=== PATIENT | male | born 1935 | race Caucasian/White ===

== ENCOUNTER → 2017-01-03 | Outpatient (CLI) | payer MEDICARE, OTHER ==
[2017-01-03 19:24] LABS: ALBUMIN/GLOBULIN RATIO 1.3 (1.0-2.2); BILIRUBIN,TOTAL 0.6 mg/dL (0.2-1.0); CALCIUM 9.3 mg/dL (8.5-10.3); CREATININE 0.8 mg/dL (0.6-1.2); POTASSIUM 4.7 mmol/L (3.5-5.0); TOTAL PROTEIN 7.2 g/dL (6.7-8.2)
== END ==
LOC: LAB.WCP 08:00
PROVIDERS: ATTEND Family Medicine
DX: B35.1 Tinea unguium (principal); Z79.899 Other long term (current) drug therapy
CPT/HCPCS: 36415; 80053

== ENCOUNTER 2017-09-06 08:53 | Outpatient (CLI) | payer MEDICARE ==
--- NOTE | 2017-09-06 09:40 | XRAY Report ---
EXAM: CHEST RADIOGRAPHY EXAM DATE: 09/06/2017 09:20 AM. CLINICAL HISTORY: 1206.09. COMPARISON: None. TECHNIQUE: 2 views. FINDINGS: Lungs/Pleura: No focal opacities evident. No pleural effusion. No pneumothorax. Normal volumes. Mediastinum: Heart and mediastinal contours are unremarkable. IMPRESSION: No evidence of acute thoracic process [facility] Referring Provider Line: [phone] SITE ID: [id number]
[2017-09-06] MEDS ORDERED: ALBUTEROL NEB 2.5 MG/3 ML INH ONE (10:00)
== END 2017-09-06 08:54 | disposition home or self-care (01) ==
LOC: DI 08:53
PROVIDERS: ATTEND Internal Medicine
DX: R06.09 Other forms of dyspnea (principal); Z87.891 Personal history of nicotine dependence
CPT/HCPCS: 71046; 94060

== ENCOUNTER 2018-12-13 01:23 | Emergency (ER) | payer MEDICARE ==
[2018-12-13] MEDS ORDERED: DEXAMETHASONE 10 MG/ML VIAL PO STA (02:01)
[2018-12-13] MEDS ORDERED: IPRATROPIUM/ALBUTEROL 3 ML NEB INH STA (02:01)
[2018-12-13] MEDS ORDERED: CHERRY SYRUP 10 ML UDC PO ONE (02:01)
--- NOTE | 2018-12-13 02:02 | ED Physician Documentation ---
PD HPI DYSPNEA - Stated complaint Stated Complaint: BACK PX - Chief complaint Chief Complaint: Back Pain - History obtained from History obtained from: Patient - History of Present Illness Timing - onset: How many days ago (5-6) Timing - onset during: Light activity, Exertion (Initially noted some tightness in his upper back and chest along with shortness of breath when walking around the block 5 or 6 days ago. He states it has been progressive and has noted some dyspnea which just walking around the house past day or so. He has had a slight cough. He denies wheeze per se. He has tightness in the chest feeling. He does have a diagnosis of COPD and has had some pulmonary function tests. He does not usually use any inhalers nor oxygen. He does not have any history of coronary disease nor congestive heart failure.) Timing - details: Gradual onset, Still present, Waxing and waning Inciting event(s): No: Out of meds, URI, Immobilization/travel Improved by: Rest, Sitting up Worsened by: Exertion, Laying flat. No: Coughing Associated symptoms: Cough (mild), Chest pain / discomfort (tightness without pain). No: Fever, Hemoptysis, Wheezing, Palpitations, Bilateral edema Similar symptoms before: Has not had sx before Recently seen: Not recently seen Review of Systems Constitutional: reports: Fatigue. denies: Fever, Chills, Myalgias, Weight Loss Nose: denies: Rhinorrhea / runny nose, Congestion Throat: denies: Sore throat Cardiac: reports: Chest pain / pressure. denies: Palpitations, Pedal edema, Calf pain Respiratory: reports: Dyspnea, Cough. denies: Wheezing GI: denies: Abdominal Pain, Nausea, Vomiting, Diarrhea, Bloody / black stool Musculoskeletal: denies: Extremity swelling Neurologic: denies: Generalized weakness, Focal weakness, Numbness, Near syncope , Headache PD PAST MEDICAL HISTORY - Past Medical History Past Medical History: Yes Cardiovascular: None Respiratory: COPD Endocrine/Autoimmune: None GI: Chronic constipation : None HEENT: None Psych: None Musculoskeletal: Chronic back pain Derm: None - Past Surgical History Past Surgical History: Yes General: Cholecystectomy Ortho: Spine surgery HEENT: Tonsil/Adenoidectomy - Present Medications Home Medications: Ambulatory Orders Medication Instructions Recorded Confirmed Polyethylene Glycol 3350 [Miralax] 12/09/12 04/09/15 Sennosides [Senna Lax] 8.6 mg PO DAILY PRN 12/09/12 04/09/15 Aspirin [Aspir 81] 81 mg ORAL DAILY 02/17/14 04/09/15 Neomycin/Polymyxin B Sulf/Hc 4 drops LEFTEAR Q6HR #10 ml 04/09/15 [Phwnnuxd-Iwntjvngu-Ue Ear Soln] Albuterol Sulf [Ventolin Hfa 1 - 2 puffs INH Q4HR PRN #1 inhaler 12/13/18 Inhaler] Isosorbide Mononitrate ER [Imdur] 30 mg PO DAILY #10 tablet 12/13/18 dexAMETHasone [Decadron] 4 mg PO DAILY #5 tablet 12/13/18 - Allergies Allergies/Adverse Reactions: Allergies Allergy/AdvReac Type Severity Reaction Status Date / Time No Known Drug Allergies Allergy Verified 12/13/18 01:32 - Social History Does the pt smoke?: No Smoking Status: Never smoker Does the pt drink ETOH?: No Does the pt have substance abuse?: No - Immunizations Immunizations are current?: Yes PD ED PE NORMAL - Vitals Vital signs reviewed: Yes - General General: Alert and oriented X 3, No acute distress, Well developed/nourished - HEENT HEENT: Moist mucous membranes, Pharynx benign - Neck Neck: Supple, no meningeal sign, No adenopathy, No JVD - Cardiac Cardiac: RRR, No murmur - Respiratory Respiratory: Clear bilaterally - Abdomen Abdomen: Soft, Non tender - Male Male : Deferred - Rectal Rectal: Deferred - Back Back: No CVA TTP - Derm Derm: Normal color - Extremities Extremities: No tenderness to palpate, Normal ROM s pain, No edema, No calf tenderness / cord - Neuro Neuro: Alert and oriented X 3, No motor deficit, Normal speech Results - Vitals Vitals: Vital Signs - 24 hr 12/13/18 12/13/18 12/13/18 01:26 01:43 02:19 Temperature 36.6 C Heart Rate 62 57 L 51 L Respiratory 16 16 11 L Rate Blood Pressure 178/88 H O2 Saturation 98 99 12/13/18 12/13/18 03:24 03:42 Temperature 36.7 C Heart Rate 61 63 Respiratory 12 12 Rate Blood Pressure 127/74 141/76 H O2 Saturation 92 97 Oxygen O2 Source Room air - EKG (time done) 02:03 Rate: Rate (enter#) (56) Rhythm: Sinus bradycardia Ayer: Normal Intervals: Normal [place] QRS: Poor R wave progression Ischemia: Normal ST segments. No: ST elevation c/w ischemia, ST depression - Labs Labs: Laboratory Tests 12/13/18 12/13/18 12/13/18 02:10 02:10 02:10 WBC 6.4 RBC 4.26 L Hgb 13.6 L Hct 40.9 L MCV 96.0 H MCH 31.9 H MCHC 33.3 RDW 11.9 L Plt Count 187 MPV 10.1 Neut # (Auto) 3.4 Lymph # (Auto) 2.0 [place] # (Auto) 0.7 Eos # (Auto) 0.3 Baso # (Auto) 0.1 Absolute Nucleated RBC 0.00 Nucleated RBC % 0.0 Sodium 139 Potassium 4.1 Chloride 102 Carbon Dioxide 27 Anion Gap 10.0 BUN 19 Creatinine 0.8 Estimated GFR (MDRD) 93 Glucose 114 H Calcium 9.0 Magnesium 2.0 Total Bilirubin 1.0 AST 18 ALT 24 Alkaline Phosphatase 47 Troponin I 0.04 B-Natriuretic Peptide Total Protein 7.1 Albumin 4.0 Globulin 3.1 Albumin/Globulin Ratio 1.3 Lipase 25 12/13/18 02:10 WBC RBC Hgb Hct MCV MCH MCHC RDW Plt Count MPV Neut # (Auto) Lymph # (Auto) [place] # (Auto) Eos # (Auto) Baso # (Auto) Absolute Nucleated RBC Nucleated RBC % Sodium Potassium Chloride Carbon Dioxide Anion Gap BUN Creatinine Estimated GFR (MDRD) Glucose Calcium Magnesium Total Bilirubin AST ALT Alkaline Phosphatase Troponin I B-Natriuretic Peptide 44 Total Protein Albumin Globulin Albumin/Globulin Ratio Lipase - Rads (name of study) chest xray Radiology: Prelim report reviewed, EMP read contemporaneously, See rad report PD MEDICAL DECISION MAKING - ED course Complexity details: re-evaluated patient (He had nebulizer treatment and then was up and around a little bit and x-ray and states he still felt a little short of breath but not quite as bad. He was then given a nitroglycerin here in the ER and got up went to the bathroom after that and still had similar discomfort but also less than it had been. He feels okay with just resting. I think this sounds more lung like it and we will treated with an inhaler and steroids. However could also be an anginal. He states he has an appointment with his primary care on Friday which is in 2 days. He is stable otherwise so I think that can be a reasonable follow-up. He is to return if he has any rest symptoms. He can use Imdur daily for the next few days as well.), considered differential (Having chest tightness and dyspnea on exertion as well as some slight orthopnea. History of COPD with some mild cough recently but no real upper respiratory symptoms per se. He does not have any history of heart disease and has not had any leg edema. However we will check blood tests and EKG as well. We will get a chest x-ray to evaluate. We can try a nebulizer treatment.), d/w patient Departure - Departure Disposition: , Self Care Clinical Impression: Dyspnea Qualifiers: Dyspnea type: dyspnea on exertion Qualified Code(s): R06.09 - Other forms of dyspnea Condition: Stable Record reviewed to determine appropriate education?: Yes Health Concerns: dyspnea and chest discomfort Plan of Treatment: Inhaler and steroids; but also cover with nitrates pending follow up with PMD in 2 days and presume further testing (ECHO, stress test). Care Goals: activity without symptoms Assessment: Consider respiratory cause such as asthma or COPD and treat with inhaler and steroids. Also consider angina equivalent and can treat with a nitrate pending further testing. He looks stable and is without symptoms at rest so I do not discuss the Ja team admission but would want prompt outpatient work-up. Instructions: ED Dyspnea Shortness of Breath Follow-Up: Ramsey Jane MD [Primary Care Provider] - [facility] - [facility] [Provider Group] Prescriptions: Albuterol Sulf [Ventolin Hfa Inhaler] 1 - 2 puffs INH Q4HR PRN #1 inhaler PRN Reason: Shortness Of Air/Wheezing dexAMETHasone [Decadron] 4 mg PO DAILY #5 tablet Isosorbide Mononitrate ER [Imdur] 30 mg PO DAILY #10 tablet Comments: This sounds more likely to be lung related and so use the albuterol inhaler 2 puffs 4 times a day and also the Decadron steroid daily for the next 5 days. However there is still consideration of it being heart related and so we can also use a nitrate medicine daily which improves blood flow to the heart. Follow-up with your primary care Friday as planned. They will presumably get you close referral to cardiology or even in order themselves further heart testing such as an echocardiogram (ultrasound of the heart) and a stress test to further evaluate for heart cause. Return if worsening symptoms over the next couple of days in particular if you have symptoms while at rest and not just with exertion. Hold the isosorbide/nitrate medication if your blood pressure is less than 120 systolic.
[2018-12-13 02:16] LABS: BASOPHILS # (AUTO) 0.1 10^3/uL (0.0-0.1); BASOPHILS % (AUTO) 0.9 %; EOSINOPHILS # (AUTO) 0.3 10^3/uL (0.0-0.7); EOSINOPHILS % (AUTO) 4.5 %; HGB - HEMOGLOBIN 13.6 g/dL (14.0-18.0); LYMPHOCYTES % (AUTO) 30.8 %; MEAN CORPUSCULAR HEMOGLOBIN 31.9 pg (27.0-31.0); MEAN CORPUSCULAR HGB CONC 33.3 g/dL (32.0-36.0); MEAN PLATELET VOLUME 10.1 fL (7.4-11.4); MONOCYTES # (AUTO) 0.7 10^3/uL (0.0-1.0); MONOCYTES % (AUTO) 10.3 %; NEUTROPHILS # (AUTO) 3.4 10^3/uL (1.5-6.6); NEUTROPHILS % (AUTO) 53.3 %; PLT - PLATELET COUNT 187 10^3/uL (130-450); RED BLOOD COUNT 4.26 10^6/uL (4.70-6.10); RED CELL DISTRIBUTION WIDTH 11.9 % (12.0-15.0); WHITE BLOOD COUNT 6.4 x10^3/uL (4.8-10.8)
[2018-12-13 02:31] LABS: ALBUMIN/GLOBULIN RATIO 1.3 (1.0-2.2); CREATININE 0.8 mg/dL (0.6-1.2); TOTAL PROTEIN 7.1 g/dL (6.7-8.2)
--- NOTE | 2018-12-13 02:54 | XRAY Report ---
Reason: dyspnea on exertion Procedure Date: 12/13/2018 Accession Number: [id number] / [id number] Procedure: XR - Chest 2 View X-Ray CPT Code: 37525 FULL RESULT: EXAM: CHEST RADIOGRAPHY EXAM DATE: 12/13/2018 02:47 AM. CLINICAL HISTORY: Dyspnea on exertion. COMPARISON: CHEST 2 VIEW 09/06/2017 9:13 AM. TECHNIQUE: 2 views. FINDINGS: Lungs/Pleura: No focal opacities evident. No pleural effusion. No pneumothorax. Normal volumes. Mediastinum: The heart is not enlarged. There is tortuosity of the thoracic aorta. Other: None. IMPRESSION: 1. No infiltrates. 2. Tortuosity of the thoracic aorta. [facility]
[2018-12-13] MEDS ORDERED: ISOSORBIDE MONONITRATE ER 30 MG TABLET PO STA (03:38)
[2018-12-13] MEDS ORDERED: NITROGLYCERIN SL 0.4 MG TABLET SL STA (03:39)
[2018-12-13 04:01] VITALS: BP 126/74
== END 2018-12-13 04:13 | disposition home or self-care (01) ==
LOC: ED 01:23
DX: R07.89 Other chest pain (principal); J44.9 Chronic obstructive pulmonary disease, unspecified; R00.1 Bradycardia, unspecified; I44.4 Left anterior fascicular block; Q25.46 Tortuous aortic arch; Z79.82 Long term (current) use of aspirin
CPT/HCPCS: 36415; 71046; 80053; 83690; 83735; 83880; 84484; 85025; 93005; 94640; 94664; 99283; A9270

== ENCOUNTER 2018-12-14 09:16 | Emergency (ER) | payer MEDICARE ==
--- NOTE | 2018-12-14 10:36 | ED Physician Documentation ---
PD HPI CHEST PAIN - Stated complaint Stated Complaint: SOA - Chief complaint Chief Complaint: Back Pain - History obtained from History obtained from: Patient - History of Present Illness Timing - onset: How many weeks ago (1) Timing - onset during: Exertion Timing - duration: Hours Timing - details: Abrupt onset, Now resolved Pain level max: 8 Pain level now: 0 Quality: Pressure, Tightness, Sharp Location: Substernal Radiation: Back Improved by: Rest, Nitro Worsened by: Exertion Associated symptoms: Shortness of air. No: Diaphoresis, Nausea, Vomiting, Feeling faint / dizzy, General Weakness, Palpitations, Cough Similar symptoms before: No diagnosis Recently seen: Emergency Dept - Additional information Additional information: 83-year-old male with a history of chronic back pain and neck pain has developed some reproducible back pain that appears to be associated with exertion and include some shortness of breath. He was seen here in the emergency department in the foreclosure specialist 2 days ago and at that time he had a negative work-up and was placed on some albuterol and dexamethasone. The patient was also given a prescription for Imdur. He has taken the Imdur yesterday morning and he is taking it again this morning at about 5 AM. He states that yesterday evening about 8 PM he developed the pain in his back and it lasted until 5 AM this morning. He was well yesterday but feels that if he does any specific amount of exertion he will develop symptoms. He states that he has noted this over the past week. He knows that if he goes around the block he will have pain and will take hours for to resolve. He did not feel that the albuterol changed any of his symptoms. Review of Systems Constitutional: denies: Fever, Chills, Fatigue Eyes: denies: Decreased vision Ears: denies: Ear pain Nose: denies: Rhinorrhea / runny nose, Reviewed and negative Throat: denies: Sore throat Cardiac: reports: Chest pain / pressure. denies: Palpitations, Pedal edema, Calf pain Respiratory: reports: Dyspnea, Cough GI: denies: Abdominal Pain, Nausea, Vomiting : denies: Dysuria, Frequency Skin: denies: Rash Musculoskeletal: reports: Back pain. denies: Neck pain, Extremity pain Neurologic: denies: Generalized weakness, Focal weakness, Numbness PD PAST MEDICAL HISTORY - Past Medical History Past Medical History: Yes Cardiovascular: None Respiratory: COPD Endocrine/Autoimmune: None GI: Chronic constipation : None HEENT: None Psych: None Musculoskeletal: Chronic back pain Derm: None - Past Surgical History Past Surgical History: Yes General: Cholecystectomy Ortho: Spine surgery HEENT: Tonsil/Adenoidectomy - Present Medications Home Medications: Ambulatory Orders Medication Instructions Recorded Confirmed Polyethylene Glycol 3350 [Miralax] 12/09/12 04/09/15 Sennosides [Senna Lax] 8.6 mg PO DAILY PRN 12/09/12 04/09/15 Aspirin [Aspir 81] 81 mg ORAL DAILY 02/17/14 04/09/15 Neomycin/Polymyxin B Sulf/Hc 4 drops LEFTEAR Q6HR #10 ml 04/09/15 [Gmcxqqzb-Pewjauurg-Rz Ear Soln] Albuterol Sulf [Ventolin Hfa 1 - 2 puffs INH Q4HR PRN #1 inhaler 12/13/18 Inhaler] Isosorbide Mononitrate ER [Imdur] 30 mg PO DAILY #10 tablet 12/13/18 dexAMETHasone [Decadron] 4 mg PO DAILY #5 tablet 12/13/18 - Allergies Allergies/Adverse Reactions: Allergies Allergy/AdvReac Type Severity Reaction Status Date / Time No Known Drug Allergies Allergy Verified 12/14/18 09:22 - Social History Does the pt smoke?: No Smoking Status: Former smoker Does the pt drink ETOH?: No Does the pt have substance abuse?: No - Immunizations Immunizations are current?: Yes PD ED PE NORMAL - Vitals Vital signs reviewed: Yes (normal ) - General General: Alert and oriented X 3, No acute distress, Well developed/nourished, Other (appears well and is currently asymptomatic ) - HEENT HEENT: Atraumatic, PERRL, EOMI - Neck Neck: Supple, no meningeal sign, No bony TTP - Cardiac Cardiac: RRR, No murmur - Respiratory Respiratory: No respiratory distress, Clear bilaterally - Abdomen Abdomen: Soft, Non tender - Back Back: No CVA TTP, No spinal TTP - Derm Derm: Normal color, Warm and dry, No rash - Extremities Extremities: No deformity, No edema - Neuro Neuro: Alert and oriented X 3, 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, No motor deficit, No sensory deficit, Normal speech Eye Opening: Spontaneous Motor: Obeys Commands Verbal: Oriented GCS Score: 15 - Psych Psych: Normal mood, Normal affect Results - Vitals Vitals: Vital Signs - 24 hr 12/14/18 12/14/18 12/14/18 09:18 09:52 11:13 Temperature 37.7 C H 37 C 36.9 C Heart Rate 76 69 96 Respiratory 20 18 14 Rate Blood Pressure 111/67 110/70 102/60 O2 Saturation 96 96 94 12/14/18 12/14/18 13:21 14:21 Temperature 37.3 C 37.3 C Heart Rate 61 58 L Respiratory 20 22 Rate Blood Pressure 119/76 128/64 O2 Saturation 95 94 Oxygen O2 Source Room air - EKG (time done) 1036 Rate: Rate (enter#) (66) Rhythm: Atrial fibrillation Crane: LAD Ischemia: ST depression (lateral is subtle) Compare to prior EKG: Changed from prior EKG Computer interpretation: Agree with computer 1435 Rate: Rate (enter#) (53) Crane: LAD Compare to prior EKG: Changed from prior EKG (SPT earlier today the subtle ST depression in lateral leads and the afib have resolved. ) Computer interpretation: Agree with computer - Labs Labs: Laboratory Tests 12/14/18 12/14/18 12/14/18 10:55 10:55 10:55 WBC 11.1 H RBC 3.79 L Hgb 12.2 L Hct 36.4 L MCV 96.0 H MCH 32.2 H MCHC 33.5 RDW 12.1 Plt Count 200 MPV 11.4 Neut # (Auto) 8.2 H Lymph # (Auto) 1.8 [place] # (Auto) 0.9 Eos # (Auto) 0.1 Baso # (Auto) 0.0 Absolute Nucleated RBC 0.00 Nucleated RBC % 0.0 Sodium 139 Potassium 4.0 Chloride 102 Carbon Dioxide 26 Anion Gap 11.0 BUN 22 H Creatinine 0.8 Estimated GFR (MDRD) 93 Glucose 120 H Calcium 8.8 Total Bilirubin 0.8 AST 41 ALT 29 Alkaline Phosphatase 40 L Troponin I 9.17 H* Total Protein 6.7 Albumin 3.8 Globulin 2.9 Albumin/Globulin Ratio 1.3 Lipase 24 - Rads (name of study) chest Radiology: Prelim report reviewed (Impression: 1. Small left pleural effusion with adjacent atelectasis and airspace disease. 2. Poor inspiration.), EMP read indepedently, See rad report PD MEDICAL DECISION MAKING - ED course Complexity details: reviewed old records, reviewed results, re-evaluated patient, considered differential, d/w patient ED course: 83-year-old male with a history compelling for angina has had pain from 8 PM last night till 5 AM this morning and is now pain-free. He has an elevation of his troponin consistent with NSTEMI. Dr. Duckworth at [facility] is kind enough to accept this patient in transfer and recommends the heparin and plavix. Turns out that both [facility] and [facility] do not have beds this afternoon. Our friends at [facility] in [place] have a bed and I was able to consult the strap setter Dr. Choe and he recommends admission to the hospitalist service. Dr. Moreno graciously accepts the patient in transfer. Departure - Departure Disposition: 02 Transfer Acute Care Hosp Clinical Impression: NSTEMI (non-ST elevated myocardial infarction) Condition: Fair
[2018-12-14 11:09] LABS: BASOPHILS % (AUTO) 0.3 %; EOSINOPHILS # (AUTO) 0.1 10^3/uL (0.0-0.7); EOSINOPHILS % (AUTO) 0.6 %; HGB - HEMOGLOBIN 12.2 g/dL (14.0-18.0); LYMPHOCYTES # (AUTO) 1.8 10^3/uL (1.5-3.5); LYMPHOCYTES % (AUTO) 16.1 %; MEAN CORPUSCULAR HEMOGLOBIN 32.2 pg (27.0-31.0); MEAN CORPUSCULAR HGB CONC 33.5 g/dL (32.0-36.0); MEAN PLATELET VOLUME 11.4 fL (7.4-11.4); MONOCYTES # (AUTO) 0.9 10^3/uL (0.0-1.0); MONOCYTES % (AUTO) 8.5 %; NEUTROPHILS # (AUTO) 8.2 10^3/uL (1.5-6.6); NEUTROPHILS % (AUTO) 74.1 %; PLT - PLATELET COUNT 200 10^3/uL (130-450); RED BLOOD COUNT 3.79 10^6/uL (4.70-6.10); RED CELL DISTRIBUTION WIDTH 12.1 % (12.0-15.0); WHITE BLOOD COUNT 11.1 x10^3/uL (4.8-10.8)
[2018-12-14 11:23] LABS: ALBUMIN 3.8 g/dL (3.2-5.5); ALBUMIN/GLOBULIN RATIO 1.3 (1.0-2.2); BILIRUBIN,TOTAL 0.8 mg/dL (0.2-1.0); CALCIUM 8.8 mg/dL (8.5-10.3); CREATININE 0.8 mg/dL (0.6-1.2); TOTAL PROTEIN 6.7 g/dL (6.7-8.2)
--- NOTE | 2018-12-14 11:24 | XRAY Report ---
Reason: chest pain Procedure Date: 12/14/2018 Accession Number: [id number] / [id number] Procedure: XR - Chest 1 View X-Ray CPT Code: 97902 FULL RESULT: EXAM: CHEST RADIOGRAPHY EXAM DATE: 12/14/2018 11:13 AM. CLINICAL HISTORY: Chest pain. COMPARISON: CHEST 2 VIEW 12/13/2018 2:40 AM. TECHNIQUE: 1 view. FINDINGS: Lungs/Pleura: Left hemidiaphragm is obscured by adjacent opacity. Right lung is clear. Diminished lung volumes. Mediastinum: Atherosclerotic aortic calcifications. Tortuous thoracic aorta. Other: None. IMPRESSION: 1. Small left pleural effusion with adjacent atelectasis and airspace disease. 2. Poor inspiration. [facility]
[2018-12-14] MEDS ORDERED: HEPARIN 25000UNITS/500ML (D5W) 25,000 UNIT/500 ML BAG IV STA (11:35)
[2018-12-14] MEDS ORDERED: CLOPIDOGREL 300 MG TABLET PO STA (11:36)
[2018-12-14 14:22] VITALS: BP 128/64
== END 2018-12-14 15:46 | disposition short-term general hospital (02) ==
LOC: ED 09:16
DX: I21.4 Non-ST elevation (NSTEMI) myocardial infarction (principal); Z87.891 Personal history of nicotine dependence
CPT/HCPCS: 36415; 71045; 80053; 83690; 84484; 85025; 93005; 96365; 96366; 96376; 99284; A9270

== ENCOUNTER 2018-12-14 15:49 | Outpatient (CLI) | payer MEDICARE | END 2018-12-14 15:50 | disposition home or self-care (01) | LOC: EMS 15:49 | PROVIDERS: ATTEND Surgery | DX: I21.4 Non-ST elevation (NSTEMI) myocardial infarction (principal) | CPT/HCPCS: A0425; A0426 ==

== ENCOUNTER 2019-02-19 11:30 | Outpatient (CLI) | payer MEDICARE | END 2019-02-19 11:31 | disposition short-term general hospital (02) | LOC: EMS 11:30 | PROVIDERS: ATTEND Surgery | DX: R07.9 Chest pain, unspecified (principal) | CPT/HCPCS: A0425; A0427 ==

== ENCOUNTER 2019-03-17 08:15 | Outpatient (CLI) | payer MEDICARE ==
[2019-03-18 13:05] LABS: BASOPHILS # (AUTO) 0.1 10^3/uL (0.0-0.1); BASOPHILS % (AUTO) 1.1 %; EOSINOPHILS # (AUTO) 0.4 10^3/uL (0.0-0.7); EOSINOPHILS % (AUTO) 5.7 %; HGB - HEMOGLOBIN 13.3 g/dL (14.0-18.0); LYMPHOCYTES # (AUTO) 1.5 10^3/uL (1.5-3.5); LYMPHOCYTES % (AUTO) 23.2 %; MEAN CORPUSCULAR HEMOGLOBIN 32.2 pg (27.0-31.0); MEAN CORPUSCULAR HGB CONC 32.9 g/dL (32.0-36.0); MEAN CORPUSCULAR VOLUME 97.8 fL (80.0-94.0); MEAN PLATELET VOLUME 13.2 fL (7.4-11.4); MONOCYTES # (AUTO) 0.7 10^3/uL (0.0-1.0); MONOCYTES % (AUTO) 9.9 %; NEUTROPHILS % (AUTO) 59.9 %; PLT - PLATELET COUNT 200 10^3/uL (130-450); RED BLOOD COUNT 4.13 10^6/uL (4.70-6.10); RED CELL DISTRIBUTION WIDTH 12.1 % (12.0-15.0); WHITE BLOOD COUNT 6.6 x10^3/uL (4.8-10.8)
[2019-03-18 13:13] LABS: ALBUMIN 4.5 g/dL (3.2-5.5); ALBUMIN/GLOBULIN RATIO 1.6 (1.0-2.2); ALKALINE PHOSPHATASE 48 IU/L (42-121); ALT ALANINE AMINOTRANSFERASE 22 IU/L (10-60); AST ASPARTATE AMINOTRANSFERASE 22 IU/L (10-42); BUN - BLOOD UREA NITROGEN 20 mg/dL (6-20); CARBON DIOXIDE - CO2 28 mmol/L (21-32); CHLORIDE 102 mmol/L (101-111); CHOL/HDL RATIO 2.8 (<5.0); CHOLESTEROL 94 mg/dL; CREATININE 0.8 mg/dL (0.6-1.2); GFR - MDRD 93 (>89); GLUCOSE 106 mg/dL (70-100); HDL CHOLESTEROL 34 mg/dL; LDL CHOLESTEROL,CALCULATED 47 mg/dL; LDL/HDL RATIO 1.4 (<3.6); SODIUM 136 mmol/L (135-145); TOTAL PROTEIN 7.3 g/dL (6.7-8.2); VLDL CHOLESTEROL 13 mg/dL
== END 2019-03-17 23:59 | disposition home or self-care (01) ==
LOC: LAB.WCP 08:15
PROVIDERS: ATTEND Family Medicine
DX: I21.4 Non-ST elevation (NSTEMI) myocardial infarction (principal); I73.9 Peripheral vascular disease, unspecified; Z79.899 Other long term (current) drug therapy; Z87.891 Personal history of nicotine dependence
CPT/HCPCS: 36415; 80053; 80061; 83721; 84443; 85025

== ENCOUNTER 2019-04-26 13:28 | Outpatient (CLI) | payer MEDICARE ==
[~2019-04-26 13:28] MED LIST: ALBUTEROL NEB 2.5 MG/3 ML INH SCH
== END 2019-04-26 13:29 | disposition home or self-care (01) ==
LOC: RT 13:28
PROVIDERS: ATTEND Family Medicine
DX: J44.9 Chronic obstructive pulmonary disease, unspecified (principal)
CPT/HCPCS: 94060; 94729

== ENCOUNTER 2020-06-20 07:32 | Outpatient (CLI) | payer MEDICARE ==
[2020-06-20 12:58] LABS: BASOPHILS # (AUTO) 0.1 10^3/uL (0.0-0.1); BASOPHILS % (AUTO) 1.3 %; EOSINOPHILS # (AUTO) 0.3 10^3/uL (0.0-0.7); HGB - HEMOGLOBIN 13.9 g/dL (14.0-18.0); LYMPHOCYTES % (AUTO) 29.4 %; MEAN CORPUSCULAR HEMOGLOBIN 31.6 pg (27.0-31.0); MEAN CORPUSCULAR HGB CONC 32.7 g/dL (32.0-36.0); MEAN CORPUSCULAR VOLUME 96.6 fL (80.0-94.0); MONOCYTES # (AUTO) 0.8 10^3/uL (0.0-1.0); MONOCYTES % (AUTO) 11.1 %; NEUTROPHILS # (AUTO) 3.6 10^3/uL (1.5-6.6); NEUTROPHILS % (AUTO) 52.9 %; PLT - PLATELET COUNT 178 10^3/uL (130-450); RED CELL DISTRIBUTION WIDTH 12.1 % (12.0-15.0); WHITE BLOOD COUNT 6.7 x10^3/uL (4.8-10.8)
[2020-06-20 13:39] LABS: ALBUMIN 4.4 g/dL (3.2-5.5); ALBUMIN/GLOBULIN RATIO 1.4 (1.0-2.2); ALKALINE PHOSPHATASE 58 IU/L (42-121); ALT ALANINE AMINOTRANSFERASE 24 IU/L (10-60); AST ASPARTATE AMINOTRANSFERASE 21 IU/L (10-42); BILIRUBIN,TOTAL 0.8 mg/dL (0.2-1.0); BUN - BLOOD UREA NITROGEN 13 mg/dL (6-20); CALCIUM 9.4 mg/dL (8.5-10.3); CARBON DIOXIDE - CO2 28 mmol/L (21-32); CHLORIDE 105 mmol/L (101-111); CHOL/HDL RATIO 3.3 (<5.0); CHOLESTEROL 118 mg/dL; CREATININE 0.9 mg/dL (0.6-1.2); GLUCOSE 118 mg/dL (70-100); HDL CHOLESTEROL 36 mg/dL; LDL CHOLESTEROL,CALCULATED 66 mg/dL; LDL/HDL RATIO 1.8 (<3.6); SODIUM 138 mmol/L (135-145); TOTAL PROTEIN 7.5 g/dL (6.7-8.2); VLDL CHOLESTEROL 16 mg/dL
== END 2020-06-20 23:59 | disposition home or self-care (01) ==
LOC: LAB.WCP 07:32
PROVIDERS: ATTEND Nurse Practitioner Family
DX: I21.4 Non-ST elevation (NSTEMI) myocardial infarction (principal); Z79.899 Other long term (current) drug therapy
CPT/HCPCS: 36415; 80053; 80061; 83721; 84443; 85025

== ENCOUNTER 2021-04-24 14:50 | Outpatient (CLI) | payer MEDICARE ==
[2021-04-24 17:51] LABS: BASOPHILS # (AUTO) 0.1 10^3/uL (0.0-0.1); BASOPHILS % (AUTO) 0.8 %; BILIRUBIN,URINE NEGATIVE (NEGATIVE); CLARITY,URINE CLEAR (CLEAR); EOSINOPHILS # (AUTO) 0.2 10^3/uL (0.0-0.7); EOSINOPHILS % (AUTO) 3.8 %; GLUCOSE, URINE (UA) NEGATIVE (NEGATIVE); HCT - HEMATOCRIT 40.5 % (42.0-52.0); HGB - HEMOGLOBIN 13.3 g/dL (14.0-18.0); KETONES,URINE (UA) NEGATIVE (NEGATIVE); LEUKOCYTE ESTERASE, URINE NEGATIVE (NEGATIVE); LYMPHOCYTES # (AUTO) 1.6 10^3/uL (1.5-3.5); LYMPHOCYTES % (AUTO) 25.2 %; MEAN CORPUSCULAR HEMOGLOBIN 32.1 pg (27.0-31.0); MEAN CORPUSCULAR HGB CONC 32.8 g/dL (32.0-36.0); MEAN CORPUSCULAR VOLUME 97.8 fL (80.0-94.0); MEAN PLATELET VOLUME 13.8 fL (7.4-11.4); MONOCYTES # (AUTO) 0.4 10^3/uL (0.0-1.0); NITRITE,URINE NEGATIVE (NEGATIVE); OCCULT BLOOD,URINE NEGATIVE (NEGATIVE); PH,URINE 5.5 PH (5.0-7.5); PLT - PLATELET COUNT 195 10^3/uL (130-450); PROTEIN,URINE NEGATIVE (NEGATIVE); RED BLOOD COUNT 4.14 10^6/uL (4.70-6.10); UROBILINOGEN,URINE 0.2 (NORMAL) E.U./dL (NORMAL); WHITE BLOOD COUNT 6.3 x10^3/uL (4.8-10.8)
[2021-04-24 18:05] LABS: ALBUMIN 4.1 g/dL (3.2-5.5); ALBUMIN/GLOBULIN RATIO 1.3 (1.0-2.2); ALKALINE PHOSPHATASE 50 IU/L (42-121); ALT ALANINE AMINOTRANSFERASE 23 IU/L (10-60); AST ASPARTATE AMINOTRANSFERASE 19 IU/L (10-42); BILIRUBIN,TOTAL 0.6 mg/dL (0.2-1.0); BUN - BLOOD UREA NITROGEN 23 mg/dL (6-20); CARBON DIOXIDE - CO2 29 mmol/L (21-32); CHLORIDE 101 mmol/L (101-111); CHOL/HDL RATIO 5.4 (<5.0); CHOLESTEROL 221 mg/dL; CREATININE 0.8 mg/dL (0.6-1.2); GFR - MDRD 92 (>89); GLUCOSE 196 mg/dL (70-100); HDL CHOLESTEROL 41 mg/dL; LDL CHOLESTEROL,CALCULATED 141 mg/dL; LDL/HDL RATIO 3.4 (<3.6); POTASSIUM 4.3 mmol/L (3.5-5.0); SODIUM 137 mmol/L (135-145); TOTAL PROTEIN 7.2 g/dL (6.7-8.2); TRIGLYCERIDES 195 mg/dL; VLDL CHOLESTEROL 39 mg/dL
[2021-04-24 18:15] LABS: BACTERIA,URINE None Seen /HPF (None Seen); RBC,URINE 0-5 /HPF (0-5); SQUAMOUS EPITHELIAL CELL,UR NONE SEEN (<= Few); WBC,URINE 0-3 /HPF (0-3)
[2021-04-24 18:18] LABS: THYROID STIMULATING HORMONE 0.66 uIU/mL (0.34-5.60)
[2021-04-24 20:26] LABS: ESTIMATED AVERAGE GLUCOSE 131 mg/dL (70-100); HEMOGLOBIN A1c% 6.2 % (4.27-6.07)
== END 2021-04-24 23:59 | disposition home or self-care (01) ==
LOC: LAB.WCP 14:50
PROVIDERS: ATTEND Nurse Practitioner
DX: R53.83 Other fatigue (principal); I25.10 Atherosclerotic heart disease of native coronary artery without angina pectoris
CPT/HCPCS: 36415; 80053; 80061; 81001; 83036; 83721; 84443; 85025; 87086

== ENCOUNTER 2021-05-26 10:15 | Outpatient (CLI) | payer MEDICARE | END 2021-05-26 23:59 | disposition home or self-care (01) | LOC: LAB.N 10:15 | PROVIDERS: ATTEND Family Medicine | DX: U07.1 COVID-19 (principal) | CPT/HCPCS: 87070; 87275; 87276; U0004 ==

== ENCOUNTER 2021-05-29 07:55 | Emergency (ER) | payer MEDICARE ==
--- NOTE | 2021-05-29 10:52 | ED Physician Documentation ---
PD HPI DYSPNEA - Stated complaint Stated Complaint: C+, COUGH - Chief complaint Chief Complaint: Resp - History obtained from History obtained from: Patient - History of Present Illness Timing - onset: How many days ago (4) Timing - onset during: Rest Timing - duration: Days (4), Months Timing - details: Gradual onset, Still present Inciting event(s): URI Improved by: Rest Worsened by: Exertion Associated symptoms: Cough. No: Fever, Wheezing, Chest pain / discomfort Similar symptoms before: Has not had sx before Recently seen: Clinic - Additional information Additional information: 85-year-old male immunized with 2 doses has developed Covid. He has had symptoms for 4 days. He has had a positive test at our [facility] and he is here today for treatment. He states that he is not otherwise feeling particularly ill he has a slight cough has produced a little bit of phlegm. Review of Systems Constitutional: reports: Fever, Chills, Myalgias, Fatigue, Sweats Ears: denies: Ear pain Nose: reports: Rhinorrhea / runny nose, Congestion Respiratory: reports: Dyspnea, Cough GI: denies: Abdominal Pain, Nausea, Vomiting, Constipation, Diarrhea : denies: Dysuria Skin: denies: Rash Musculoskeletal: denies: Neck pain, Back pain, Extremity pain PD PAST MEDICAL HISTORY - Past Medical History Cardiovascular: None Respiratory: COPD Endocrine/Autoimmune: None GI: Chronic constipation : None HEENT: None Psych: None Musculoskeletal: Chronic back pain Derm: None - Past Surgical History Past Surgical History: Yes General: Cholecystectomy Ortho: Spine surgery HEENT: Tonsil/Adenoidectomy - Present Medications Home Medications: Ambulatory Orders Medication Instructions Recorded Confirmed Sennosides [Senna Lax] 8.6 mg PO DAILY PRN 12/09/12 04/09/15 polyethylene glycoL 3350 [Miralax] 12/09/12 04/09/15 Aspirin [Aspir 81] 81 mg ORAL DAILY 02/17/14 04/09/15 Neomycin/Polymyxin B Sulf/Hc 4 drops LEFTEAR Q6HR #10 ml 04/09/15 [Iicddetj-Xwiyavpxz-Ul Ear Soln] Albuterol Sulf [Ventolin Hfa 1 - 2 puffs INH Q4HR PRN #1 inhaler 12/13/18 Inhaler] Isosorbide Mononitrate ER [Imdur] 30 mg PO DAILY #10 tablet 12/13/18 dexAMETHasone [Decadron] 4 mg PO DAILY #5 tablet 12/13/18 dexAMETHasone [Decadron] 4 mg PO DAILY #5 tablet 05/29/21 - Allergies Allergies/Adverse Reactions: Allergies Allergy/AdvReac Type Severity Reaction Status Date / Time No Known Drug Allergies Allergy Verified 12/14/18 09:22 - Social History Does the pt smoke?: No Smoking Status: Never smoker Does the pt drink ETOH?: No Does the pt have substance abuse?: No - Immunizations Immunizations are current?: Yes PD ED PE NORMAL - Vitals Vital signs reviewed: Yes (Normal) - General General: Alert and oriented X 3, No acute distress, Well developed/nourished - HEENT HEENT: Atraumatic, PERRL, EOMI - Neck Neck: Supple, no meningeal sign, No bony TTP - Cardiac Cardiac: RRR, No murmur - Respiratory Respiratory: No respiratory distress, Clear bilaterally - Abdomen Abdomen: Soft, Non tender - Back Back: No CVA TTP, No spinal TTP - Derm Derm: Normal color, Warm and dry, No rash - Extremities Extremities: No deformity, No edema - Neuro Neuro: Alert and oriented X 3, 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, No motor deficit, No sensory deficit, Normal speech Eye Opening: Spontaneous Motor: Obeys Commands Verbal: Oriented GCS Score: 15 - Psych Psych: Normal mood, Normal affect Results - Vitals Vitals: Vital Signs - 24 hr 05/29/21 10:07 Temperature 36.9 C Heart Rate 58 L Respiratory 20 Rate Blood Pressure 123/77 O2 Saturation 94 Oxygen O2 Source Room air - Labs Labs: Laboratory Tests 05/29/21 05/29/21 11:06 11:06 WBC 4.8 RBC 4.33 L Hgb 13.7 L Hct 41.3 L MCV 95.4 H MCH 31.6 H MCHC 33.2 RDW 11.8 L Plt Count 162 MPV 10.3 Neut # (Auto) 2.8 Lymph # (Auto) 1.0 L [place] # (Auto) 0.8 Eos # (Auto) 0.2 Baso # (Auto) 0.0 Absolute Nucleated RBC 0.00 Nucleated RBC % 0.0 Sodium 137 Potassium 4.5 Chloride 98 L Carbon Dioxide 27 Anion Gap 12.0 BUN 16 Creatinine 0.7 Estimated GFR (MDRD) 108 Glucose 93 Calcium 9.1 Total Bilirubin 0.8 AST 25 ALT 21 Alkaline Phosphatase 43 Total Protein 7.2 Albumin 3.8 Globulin 3.4 Albumin/Globulin Ratio 1.1 Lipase 17 L PD MEDICAL DECISION MAKING - ED course Complexity details: considered differential, d/w patient ED course: 85-year-old male with Covid 4 days of symptoms who is immunized has a positive test in our system he is consenting to treatment with Regeneron. He has received counseling on the emergency use authorization of this medication. I have recommended its use. Departure - Departure Disposition: 01 Home, Self Care Clinical Impression: COVID-19 Condition: Stable Instructions: COVID-19 [facility], Flu and Cold: Nutrition, Prevention and Treatment Tips Follow-Up: Dodie Graves ARNP [Primary Care Provider] - Prescriptions: dexAMETHasone [Decadron] 4 mg PO DAILY #5 tablet
[2021-05-29 11:13] LABS: BASOPHILS % (AUTO) 0.4 %; EOSINOPHILS # (AUTO) 0.2 10^3/uL (0.0-0.7); EOSINOPHILS % (AUTO) 3.1 %; HCT - HEMATOCRIT 41.3 % (42.0-52.0); HGB - HEMOGLOBIN 13.7 g/dL (14.0-18.0); LYMPHOCYTES % (AUTO) 21.1 %; MEAN CORPUSCULAR HEMOGLOBIN 31.6 pg (27.0-31.0); MEAN CORPUSCULAR HGB CONC 33.2 g/dL (32.0-36.0); MEAN CORPUSCULAR VOLUME 95.4 fL (80.0-94.0); MEAN PLATELET VOLUME 10.3 fL (7.4-11.4); MONOCYTES # (AUTO) 0.8 10^3/uL (0.0-1.0); MONOCYTES % (AUTO) 16.5 %; NEUTROPHILS # (AUTO) 2.8 10^3/uL (1.5-6.6); NEUTROPHILS % (AUTO) 58.7 %; PLT - PLATELET COUNT 162 10^3/uL (130-450); RED BLOOD COUNT 4.33 10^6/uL (4.70-6.10); RED CELL DISTRIBUTION WIDTH 11.8 % (12.0-15.0); WHITE BLOOD COUNT 4.8 x10^3/uL (4.8-10.8)
--- NOTE | 2021-05-29 11:32 | XRAY Report ---
PROCEDURE: Chest 1 View X-Ray INDICATIONS: Chest pain TECHNIQUE: One view of the chest was acquired. COMPARISON: 12/14/2018 FINDINGS: Surgical changes and devices: None. Lungs and pleura: No pleural effusions or pneumothorax. Lungs are clear. Mediastinum: Mediastinal contours appear normal. Heart size is normal. Bones and chest wall: No suspicious bony lesions. Overlying soft tissues appear unremarkable. IMPRESSION: No acute cardiopulmonary process demonstrated radiographically. Reviewed by: Jose Alberto Naqvi MD on 05/29/2021 11:30 AM [facility] Approved by: Jose Alberto Naqvi MD on 05/29/2021 11:30 AM [facility] Station ID: [id number]
[2021-05-29 11:37] LABS: ALBUMIN 3.8 g/dL (3.2-5.5); ALBUMIN/GLOBULIN RATIO 1.1 (1.0-2.2); BILIRUBIN,TOTAL 0.8 mg/dL (0.2-1.0); CALCIUM 9.1 mg/dL (8.5-10.3); CREATININE 0.7 mg/dL (0.6-1.2); POTASSIUM 4.5 mmol/L (3.5-5.0); TOTAL PROTEIN 7.2 g/dL (6.7-8.2)
[2021-05-29] MEDS ORDERED: CASIRIVIMAB/IMDEVIMAB 10 ML in SODIUM CHLORIDE 0.9% 50 ML IV ONE (11:45)
[2021-05-29 12:36] VITALS: BP 190/89
== END 2021-05-29 13:31 | disposition home or self-care (01) ==
LOC: ED 07:55
DX: U07.1 COVID-19 (principal); Z79.82 Long term (current) use of aspirin
CPT/HCPCS: 36415; 71045; 80053; 83690; 85025; 99284; J7040; M0243; Q0244

== ENCOUNTER 2021-11-16 08:00 | Outpatient (CLI) | payer MEDICARE ==
--- NOTE | 2021-11-16 14:08 | XRAY Report ---
PROCEDURE: Lumbar Spine 2 View INDICATIONS: LUMBAGO W/ SCIATICA LEFT SIDE TECHNIQUE: 3 views of the lumbar spine were acquired. COMPARISON: None. FINDINGS: Bones: 3 [id number] vertebrae are present. Degenerative changes of the lumbar spine and facet arthrosis in the lower lumbar spine. Disc space narrowing at L4-5 and L5-S1. Osteophytes are seen at multiple levels. There is rightward curvature of the thoracolumbar spine. The sacroiliac joints are n ormal. No vertebral body compression fractures. No suspicious bony lesions. Soft tissues: Overlying bowel gas pattern is normal. No suspicious soft tissue calcifications. IMPRESSION: 1. Multilevel degenerative changes of the lumbar spine. 2. 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 3. Facet arthrosis. 4. Mild rightward curvature of the thoracolumbar spine. Reviewed by: Immanuel Land on 11/16/2021 2:06 PM PDT Approved by: Immanuel Land on 11/16/2021 2:06 PM PDT Station ID: [id number]
== END 2021-11-16 23:59 | disposition home or self-care (01) ==
LOC: DI.N 08:00
PROVIDERS: ATTEND Physician Assistant Medical
DX: M47.816 Spondylosis without myelopathy or radiculopathy, lumbar region (principal); M47.817 Spondylosis without myelopathy or radiculopathy, lumbosacral region

== ENCOUNTER 2021-12-15 10:27 | Outpatient (CLI) | payer MEDICARE ==
[2021-12-15 11:06] LABS: BASOPHILS # (AUTO) 0.1 10^3/uL (0.0-0.1); BASOPHILS % (AUTO) 0.9 %; EOSINOPHILS # (AUTO) 0.3 10^3/uL (0.0-0.7); EOSINOPHILS % (AUTO) 3.9 %; HCT - HEMATOCRIT 39.7 % (42.0-52.0); HGB - HEMOGLOBIN 13.3 g/dL (14.0-18.0); LYMPHOCYTES % (AUTO) 23.1 %; MEAN CORPUSCULAR HEMOGLOBIN 31.5 pg (27.0-31.0); MEAN CORPUSCULAR HGB CONC 33.5 g/dL (32.0-36.0); MEAN CORPUSCULAR VOLUME 94.1 fL (80.0-94.0); MEAN PLATELET VOLUME 10.4 fL (7.4-11.4); MONOCYTES # (AUTO) 0.7 10^3/uL (0.0-1.0); MONOCYTES % (AUTO) 8.1 %; NEUTROPHILS # (AUTO) 5.4 10^3/uL (1.5-6.6); NEUTROPHILS % (AUTO) 63.8 %; PLT - PLATELET COUNT 223 10^3/uL (130-450); RED BLOOD COUNT 4.22 10^6/uL (4.70-6.10); RED CELL DISTRIBUTION WIDTH 12.1 % (12.0-15.0); WHITE BLOOD COUNT 8.5 x10^3/uL (4.8-10.8)
[2021-12-15 11:11] LABS: CALCIUM 9.7 mg/dL (8.5-10.3); CREATININE 0.9 mg/dL (0.6-1.2); POTASSIUM 4.9 mmol/L (3.5-5.0)
[2021-12-15 21:40] LABS: ESTIMATED AVERAGE GLUCOSE 134 mg/dL (70-100); HEMOGLOBIN A1c% 6.3 % (4.27-6.07)
== END 2021-12-15 10:28 | disposition home or self-care (01) ==
LOC: RT 10:27
PROVIDERS: ATTEND Orthopaedic Surgery Orthopaedic Surgery of the Spine
DX: Z01.818 Encounter for other preprocedural examination (principal); R73.9 Hyperglycemia, unspecified
CPT/HCPCS: 36415; 80048; 83036; 85025; 93005

== ENCOUNTER 2022-08-09 10:10 | Outpatient (CLI) | payer MEDICARE | END 2022-08-09 23:59 | disposition short-term general hospital (02) | LOC: EMS 10:10 | DX: R07.9 Chest pain, unspecified (principal); R06.00 Dyspnea, unspecified; I48.92 Unspecified atrial flutter | CPT/HCPCS: A0425; A0429; A0888 ==

== ENCOUNTER 2023-01-27 07:50 | Outpatient (CLI) | payer MEDICARE ==
[2023-01-27 12:43] LABS: CHOL/HDL RATIO 2.7 (<5.0); CHOLESTEROL 105 mg/dL; HDL CHOLESTEROL 39 mg/dL; LDL CHOLESTEROL,CALCULATED 52 mg/dL; LDL/HDL RATIO 1.3 (<3.6); TRIGLYCERIDES 71 mg/dL (48-352); VLDL CHOLESTEROL 14 mg/dL
== END 2023-01-27 07:51 | disposition home or self-care (01) ==
LOC: LAB.N 07:50
PROVIDERS: ATTEND Nurse Practitioner
DX: E78.5 Hyperlipidemia, unspecified (principal); Z85.46 Personal history of malignant neoplasm of prostate
CPT/HCPCS: 36415; 80061; 83721; 84153